=== PATIENT | male | born 1945 | race Two or more races ===

== ENCOUNTER 2019-06-03 10:13 | Emergency (ER) | payer MEDICARE, OTHER ==
[~2019-06-03] VITALS: Ht 165.1 cm; Wt 75.7 kg
--- NOTE | 2019-06-03 10:25 | NUR ---
PT CAME INTO THE ED C/O OF LEFT KNEE PAIN SINCE 06/02/19. PT AAOX4, VSS, BREATHING EVEN AND UNLABORED W/ NO ACUTE DISTRESS NOTED. PT CONNECTED TO THE MONITOR AND POX
[2019-06-03] MEDS ORDERED: IBUPROFEN 600 MG TABLET PO ONE ×2 (10:37→11:00)
--- NOTE | 2019-06-03 10:55 | NUR ---
XRAY AT BEDSIDE
[2019-06-03] MEDS ORDERED: HYDROCODONE/APAP 5/325MG 1 EACH TABLET ONE (11:18)
[2019-06-03] MEDS ORDERED: HYDROCODONE/APAP 5/325MG 1 EACH TABLET PO ONE (11:30)
[2019-06-03 11:36] VITALS: BP 138/92
== END 2019-06-03 11:36 | disposition home or self-care (01) ==
LOC: ER 10:13
DX: M25.562 Pain in left knee (principal); I10 Essential (primary) hypertension
CPT/HCPCS: 73564-TC

== ENCOUNTER 2019-07-12 11:05 | Emergency (ER) | payer MEDICARE, OTHER ==
[~2019-07-12] VITALS: Ht 165.1 cm; Wt 75.7 kg
[2019-07-12 11:46] LABS: BASOPHILS % (AUTO) 0.5 % (0.0-2.0); EOSINOPHILS % (AUTO) 0.7 % (0.0-6.0); HEMATOCRIT 44 % (39-51); HEMOGLOBIN 14.5 g/dL (13.5-17.5); LYMPHOCYTES % (AUTO) 23.3 % (20.0-44.0); MEAN CORPUSCULAR HGB CONC 33 g/dl (31.0-36.0); MEAN CORPUSCULAR VOLUME 93 fL (80-96); MONOCYTES # (AUTO) 0.5 /CMM (0.1-1.30); NEUTROPHILS # (AUTO) 2.8 /CMM (1.8-8.9); NEUTROPHILS % (AUTO) 63.5 % (43.0-81.0); PLATELET COUNT (AUTO) 199 /CMM (150-450); RED BLOOD CELL COUNT(AUTO) 4.75 MIL/uL (4.5-6.0); WHITE BLOOD COUNT (AUTO) 4.4 K/uL (4.3-11.0)
[2019-07-12 11:54] LABS: CALCIUM, SERUM 9.5 mg/dL (8.5-10.1); CREATININE 0.9 mg/dL (0.6-1.3); POTASSIUM 4.3 mmol/L (3.5-5.1)
[2019-07-12 12:00] LABS: ALBUMIN 3.8 g/dL (3.4-5.0); BILIRUBIN,DIRECT 0.1 mg/dL (0.0-0.2); BILIRUBIN,TOTAL 0.5 mg/dL (0.2-1.0); TOTAL PROTEIN, SERUM 7.1 g/dL (6.4-8.2)
--- NOTE | 2019-07-12 13:16 | NUR ---
Dr. Harper @ bedside
[2019-07-12 13:51] VITALS: BP 137/67
--- NOTE | 2019-07-12 13:57 | NUR ---
Patient discharged to home in stable condition. Written and verbal after care instructions given. Patient verbalizes understanding of instruction.
== END 2019-07-12 13:58 | disposition home or self-care (01) ==
LOC: ER 11:05
DX: J44.9 Chronic obstructive pulmonary disease, unspecified (principal); I10 Essential (primary) hypertension
CPT/HCPCS: 36415; 71046; 80048-TC; 80076-TC; 83690-TC; 85025-TC

== ENCOUNTER 2019-11-05 00:46 | Emergency (ER) | payer MEDICARE, OTHER ==
[~2019-11-05] VITALS: Ht 167.6 cm; Wt 77.1 kg
--- NOTE | 2019-11-05 00:50 | NUR ---
Pt bibself c/o bilateral eye swelling and r eye pain following eyelid surgery yesterday. Pt axo4. respirations even and unlabored. pt put on the uncrater and pulse ox. pt stable. pt ambulatory with steady gait. NAD noted. Erythema and periorbital edema noted.
--- NOTE | 2019-11-05 01:20 | NUR ---
18g lac iv started, labs drawn and sent to lab.
[2019-11-05 01:32] LABS: BASOPHILS # (AUTO) 0.1 /CMM (0.0-0.2); BASOPHILS % (AUTO) 1.1 % (0.0-2.0); HEMATOCRIT 45 % (39-51); HEMOGLOBIN 14.7 g/dL (13.5-17.5); LYMPHOCYTES # (AUTO) 1.5 /CMM (0.8-4.8); LYMPHOCYTES % (AUTO) 28.7 % (20.0-44.0); MEAN CORPUSCULAR HGB CONC 33 g/dl (31.0-36.0); MEAN CORPUSCULAR VOLUME 93 fL (80-96); MONOCYTES # (AUTO) 0.7 /CMM (0.1-1.30); MONOCYTES % (AUTO) 14.3 % (2.0-12.0); NEUTROPHILS # (AUTO) 2.7 /CMM (1.8-8.9); NEUTROPHILS % (AUTO) 52.9 % (43.0-81.0); PLATELET COUNT (AUTO) 179 /CMM (150-450); RED BLOOD CELL COUNT(AUTO) 4.85 MIL/uL (4.5-6.0); WHITE BLOOD COUNT (AUTO) 5.1 K/uL (4.3-11.0)
[2019-11-05 01:47] LABS: CALCIUM, SERUM 8.8 mg/dL (8.5-10.1); POTASSIUM 4.4 mmol/L (3.5-5.1)
[2019-11-05] MEDS ORDERED: MORPHINE SULFATE INJ 4 MG/ML DISP.SYRIN ONE (01:55)
[2019-11-05] MEDS ORDERED: MORPHINE SULFATE INJ 2 MG/ML DISP.SYRIN IV ONE (02:00)
[2019-11-05] MEDS ORDERED: IOHEXOL-350 100 ML VIAL IV ONE ×2 (02:10→02:11)
[2019-11-05] MEDS ORDERED: IV NS 0.9% 250 ML IV ONE (02:10)
[2019-11-05] MEDS ORDERED: CT SWABBABLE VALVE TRANS SET 1 EA INFUS.SET MC ONE (02:10)
--- NOTE | 2019-11-05 02:13 | NUR ---
pt taken to ct via [facility].
--- NOTE | 2019-11-05 02:35 | NUR ---
Pt returned from CT.
--- NOTE | 2019-11-05 04:17 | NUR ---
CALLED [facility] FOR REPORT
[2019-11-05] MEDS ORDERED: IBUPROFEN 600 MG TABLET PO ONE ×2 (04:50→05:00)
[2019-11-05] MEDS ORDERED: CLINDAMYCIN HCL 150 MG CAPSULE PO ONE ×2 (04:50→05:00)
--- NOTE | 2019-11-05 04:56 | NUR ---
Patient discharged to home in stable condition. Written and verbal after care instructions given. Patient verbalizes understanding of instruction. IV removed. Catheter intact and site benign. Pressure and 4x4 applied to site. No bleeding noted.
[2019-11-05 04:57] VITALS: BP 129/71
== END 2019-11-05 04:57 | disposition home or self-care (01) ==
LOC: ER 00:48
DX: S05.12XA Contusion of eyeball and orbital tissues, left eye, initial encounter (principal); S05.11XA Contusion of eyeball and orbital tissues, right eye, initial encounter; H05.012 Cellulitis of left orbit; I10 Essential (primary) hypertension; M54.9 Dorsalgia, unspecified; X58.XXXA Exposure to other specified factors, initial encounter; Y93.89 Activity, other specified; Y92.89 Other specified places as the place of occurrence of the external cause; Y99.8 Other external cause status
CPT/HCPCS: 36415; 70481; 80048; 85025; 96374; 99285; J2270; J7050; Q9967 ×2

== ENCOUNTER 2022-01-11 20:54 | Emergency (ER) | payer MEDICARE, OTHER ==
[~2022-01-11] VITALS: Ht 167.6 cm; Wt 77.1 kg
[2022-01-11 21:07] VITALS: BP 131/66
--- NOTE | 2022-01-11 21:30 | NUR ---
Patient discharged to home in stable condition. Written and verbal after care instructions given. Patient verbalizes understanding of instruction. Pt ambulatory with a steady gait
== END 2022-01-11 22:31 | disposition home or self-care (01) ==
LOC: ER 20:59
DX: H11.32 Conjunctival hemorrhage, left eye (principal); I10 Essential (primary) hypertension

== ENCOUNTER 2023-04-09 16:34 | Emergency (ER) | payer MEDICARE, OTHER ==
[~2023-04-09] VITALS: Ht 170.2 cm; Wt 67.1 kg
[2023-04-09] MEDS ORDERED: LIDOCAINE HCL/PF 1% 30 ML SDV ONE (17:54)
[2023-04-09] MEDS ORDERED: SULFAMETH/TRIMETH 800/160 MG 1 UDTAB TABLET PO ONE (18:00)
[2023-04-09] MEDS ORDERED: SULFAMETH/TRIMETH 800/160 MG 1 UDTAB TABLET ONE (18:08)
[2023-04-09] MEDS ORDERED: SULF1TAB48 PO (18:39)
[2023-04-09 18:56] VITALS: BP 147/86; TEMP 98.4; O2SAT 100
== END 2023-04-09 18:56 | disposition home or self-care (01) ==
LOC: ER 16:40
DX: H60.01 Abscess of right external ear (principal); I10 Essential (primary) hypertension; Z60.2 Problems related to living alone
CPT/HCPCS: 99283; 10060; J3490

== ENCOUNTER 2023-04-12 16:39 | Emergency (ER) | payer MEDICARE, OTHER ==
[~2023-04-12] VITALS: Ht 170.2 cm; Wt 64.4 kg
[~2023-04-12 16:39] MED LIST: SULF1TAB48 PO
[2023-04-12 17:09] VITALS: BP 142/67; TEMP 98.6
[2023-04-12] MEDS ORDERED: LIDOCAINE HCL/PF 1% 30 ML VIAL TP ONE (17:30)
[2023-04-12] MEDS ORDERED: LIDOCAINE MPF 1%-EPI 1:200,000 30 ML VIAL IJ ONE (17:39)
[2023-04-12 18:30] VITALS: O2SAT 98
== END 2023-04-12 18:31 | disposition home or self-care (01) ==
LOC: ER 16:57
DX: L98.9 Disorder of the skin and subcutaneous tissue, unspecified (principal); I10 Essential (primary) hypertension; Z60.2 Problems related to living alone
CPT/HCPCS: 10060; 99282; J3490 ×2

== ENCOUNTER 2023-08-19 15:24 | Emergency (ER) | payer MEDICARE, OTHER ==
[~2023-08-19] VITALS: Ht 170.2 cm; Wt 69.4 kg
[2023-08-19] MEDS ORDERED: SUMATRIPTAN SUCCINATE 6 MG/0.5 ML VIAL SQ ONE (15:58)
[2023-08-19] MEDS ORDERED: diphenhydrAMINE HCL 50 MG/ML VIAL ONE (15:58)
[2023-08-19] MEDS: diphenhydrAMINE HCL 50 MG/ML VIAL IV ONE (16:04)
[2023-08-19] MEDS: SUMATRIPTAN SUCCINATE 6 MG/0.5 ML VIAL SQ ONE (16:05)
[2023-08-19 16:10] LABS: BASOPHILS % (AUTO) 0.7 % (0.0-2.0); EOSINOPHILS % (AUTO) 1.2 % (0.0-6.0); HEMATOCRIT 41 % (39-51); HEMOGLOBIN 13.3 g/dL (13.5-17.5); LYMPHOCYTES % (AUTO) 24.9 % (20.0-44.0); MEAN CORPUSCULAR HEMOGLOBIN 31 PG (26.0-33.0); MEAN CORPUSCULAR HGB CONC 33 g/dl (31.0-36.0); MEAN CORPUSCULAR VOLUME 93 fL (80-96); MONOCYTES # (AUTO) 0.4 K/uL (0.1-1.30); MONOCYTES % (AUTO) 9.7 % (2.0-12.0); NEUTROPHILS # (AUTO) 2.6 K/uL (1.8-8.9); NEUTROPHILS % (AUTO) 63.5 % (43.0-81.0); PLATELET COUNT (AUTO) 164 K/uL (150-450); RED BLOOD CELL COUNT(AUTO) 4.37 MIL/uL (4.5-6.0); RED CELL DISTRIBUTION WIDTH 14.5 % (11.5-15.0); WHITE BLOOD COUNT (AUTO) 4.1 K/uL (4.3-11.0)
[2023-08-19 16:28] LABS: CALCIUM, SERUM 9.1 mg/dL (8.5-10.1); CARBON DIOXIDE 28 mmol/L (21-32); CHLORIDE 103 mmol/L (98-107); CREATININE 0.8 mg/dL (0.6-1.3); GLUCOSE 99 mg/dL (74-106); SODIUM SERUM 136 mmol/L (136-145); UREA NITROGEN, BLOOD 18 mg/dL (7-18)
[2023-08-19 16:40] LABS: NT-PRO BNP 34 pg/mL (0-125)
[2023-08-19] MEDS ORDERED: IBUP-1953 PO (18:47)
[2023-08-19] MEDS ORDERED: SUMA50TA PO (18:47)
[2023-08-19 19:05] VITALS: BP 128/78; TEMP 98.1; O2SAT 97
== END 2023-08-19 19:06 | disposition home or self-care (01) ==
LOC: ER 15:24
DX: B34.9 Viral infection, unspecified (principal); R51.9 Headache, unspecified; I10 Essential (primary) hypertension; Z20.822 Contact with and (suspected) exposure to COVID-19
CPT/HCPCS: 99285; 96374; 70450; 71045; 87426; 93005 ×3; 87804 ×2; 85025; 80048; 36415; 84484; 83880; 82962; 96372; J1200; J3030; C9803

== ENCOUNTER 2023-09-01 00:50 | Emergency (ER) | payer MEDICARE, OTHER ==
[~2023-09-01] VITALS: Ht 170.2 cm; Wt 69.4 kg
[~2023-09-01 00:50] MED LIST changes: +IBUP-1953 PO; +SUMA50TA PO
[2023-09-01] MEDS ORDERED: HYDROCODONE/APAP 5/325MG TABLET PO ONE (01:30)
[2023-09-01 01:32] VITALS: TEMP 98.4
[2023-09-01] MEDS ORDERED: MORP15TA PO (01:35)
[2023-09-01] MEDS ORDERED: HYDROCODONE/APAP 5/325MG TABLET ONE (01:36)
[2023-09-01] MEDS ORDERED: KETOROLAC TROMETHAMINE INJ 60 MG/2 ML VIAL IM ONE ×2 (03:30)
[2023-09-01 04:43] VITALS: BP 135/81; O2SAT 98
== END 2023-09-01 04:44 | disposition home or self-care (01) ==
LOC: ER 00:52
DX: M75.31 Calcific tendinitis of right shoulder (principal); M25.511 Pain in right shoulder; I10 Essential (primary) hypertension
CPT/HCPCS: 99283; 96372; 73030; J1885

== ENCOUNTER → 2023-10-02 | Emergency (ER) | payer MEDICARE, OTHER ==
[~2023-10-02] VITALS: Ht 170.2 cm; Wt 73.9 kg
[~2023-10-02] MED LIST changes: +CYCL10TA9 PO; +IBUP-1955 PO; +IBUPROFEN 600 MG TABLET ONE; +MORP15TA PO
[2023-10-02] MEDS: IBUPROFEN 600 MG TABLET PO ONE (12:13)
[2023-10-02 12:25] VITALS: BP 146/95; TEMP 98.5; O2SAT 96
== END | disposition home or self-care (01) ==
LOC: ER 09:06
DX: S33.5XXA Sprain of ligaments of lumbar spine, initial encounter (principal); J90 Pleural effusion, not elsewhere classified; I10 Essential (primary) hypertension; X58.XXXA Exposure to other specified factors, initial encounter; Y93.89 Activity, other specified; Y92.89 Other specified places as the place of occurrence of the external cause; Y99.8 Other external cause status
CPT/HCPCS: 71045-TC; 72100-TC

== ENCOUNTER 2024-01-30 04:20 | Emergency (ER) | payer MEDICARE, OTHER ==
[~2024-01-30] VITALS: Ht 170.2 cm; Wt 62.6 kg
[~2024-01-30 04:20] MED LIST changes: +CIPR500T5 PO; -IBUPROFEN 600 MG TABLET ONE; +TAMS-12 PO
[2024-01-30] MEDS ORDERED: FAMOTIDINE/PF INJ 20 MG/2 ML VIAL IV ONE (05:08)
[2024-01-30] MEDS: FAMOTIDINE/PF INJ 20 MG/2 ML VIAL IV ONE (05:25)
[2024-01-30 06:46] LABS: BASOPHILS % (AUTO) 0.5 % (0.0-2.0); EOSINOPHILS # (AUTO) 0.1 K/uL (0.0-0.7); EOSINOPHILS % (AUTO) 2.4 % (0.0-6.0); HEMATOCRIT 39 % (39-51); LYMPHOCYTES # (AUTO) 1.2 K/uL (0.8-4.8); LYMPHOCYTES % (AUTO) 28.8 % (20.0-44.0); MEAN CORPUSCULAR HEMOGLOBIN 31 PG (26.0-33.0); MEAN CORPUSCULAR HGB CONC 33 g/dl (31.0-36.0); MEAN CORPUSCULAR VOLUME 93 fL (80-96); MONOCYTES # (AUTO) 0.6 K/uL (0.1-1.30); MONOCYTES % (AUTO) 13.7 % (2.0-12.0); NEUTROPHILS # (AUTO) 2.3 K/uL (1.8-8.9); NEUTROPHILS % (AUTO) 54.6 % (43.0-81.0); PLATELET COUNT (AUTO) 166 K/uL (150-450); RED CELL DISTRIBUTION WIDTH 15.5 % (11.5-15.0); WHITE BLOOD COUNT (AUTO) 4.2 K/uL (4.3-11.0)
[2024-01-30 06:51] LABS: ADD URINE CULTURE NO; APPEARANCE,URINE CLEAR (CLEAR); BACTERIA,URINE Rare /HPF (None Seen); BILIRUBIN,URINE NEGATIVE (NEGATIVE); BLOOD, URINE TRACE-INTA Ery/uL (NEGATIVE); COLOR,URINE YELLOW (YELLOW); KETONES,URINE TRACE mg/dL (NEGATIVE); LEUKOCYTE ESTERASE ,URINE NEGATIVE (NEGATIVE); NITRITE, URINE NEGATIVE (NEGATIVE); PH,URINE 5.5 (5.0-8.0); PROTEIN,URINE NEGATIVE (NEGATIVE); SQUAMOUS EPITHELIAL CELL,UR Rare /HPF (None Seen); UGLUCOSE NEGATIVE (NEGATIVE); UROBILINOGEN,URINE 0.2 EU/dL (0.2); WBC,URINE 0-2 /HPF (0-3)
[2024-01-30 07:06] LABS: CALCIUM, SERUM 9.4 mg/dL (8.5-10.1); CARBON DIOXIDE 28 mmol/L (21-32); CHLORIDE 106 mmol/L (98-107); CREATININE 0.8 mg/dL (0.6-1.3); GLUCOSE 106 mg/dL (74-106); SODIUM SERUM 142 mmol/L (136-145); UREA NITROGEN, BLOOD 16 mg/dL (7-18)
[2024-01-30 07:12] LABS: ALANINE AMINOTRANSFERASE 16 U/L (12-78); ALBUMIN 3.3 g/dL (3.4-5.0); ALKALINE PHOSPHATASE 40 U/L (46-116); ASPARTATE AMINOTRANSFERASE < 5 U/L (15-37); BILIRUBIN,DIRECT 0.1 mg/dL (0.0-0.2); BILIRUBIN,TOTAL 0.3 mg/dL (0.2-1.0); LIPASE 39 U/L (16-77); TOTAL PROTEIN, SERUM 6.6 g/dL (6.4-8.2)
[2024-01-30] MEDS ORDERED: PANT40TA2 PO (07:35)
[2024-01-30 07:47] VITALS: BP 124/71; TEMP 98; O2SAT 98
== END 2024-01-30 07:47 | disposition home or self-care (01) ==
LOC: ER 04:29
DX: R10.13 Epigastric pain (principal); I10 Essential (primary) hypertension; Z87.438 Personal history of other diseases of male genital organs
CPT/HCPCS: 36415; 80048-TC; 80076-TC; 81001; 83690-TC; 84484-TC; 85025-TC; 87086-TC; J3490

== ENCOUNTER 2024-02-15 08:35 | Emergency (ER) | payer MEDICARE, OTHER ==
[~2024-02-15] VITALS: Ht 170.2 cm; Wt 73.9 kg
[~2024-02-15 08:35] MED LIST changes: +PANT40TA2 PO
[2024-02-15] MEDS ORDERED: TAMS-12 PO (09:03)
[2024-02-15 09:32] LABS: APPEARANCE,URINE CLEAR (CLEAR); BILIRUBIN,URINE NEGATIVE (NEGATIVE); BLOOD, URINE TRACE-INTA Ery/uL (NEGATIVE); COLOR,URINE YELLOW (YELLOW); KETONES,URINE NEGATIVE (NEGATIVE); LEUKOCYTE ESTERASE ,URINE NEGATIVE (NEGATIVE); NITRITE, URINE POSITIVE (NEGATIVE); PROTEIN,URINE NEGATIVE (NEGATIVE); UGLUCOSE NEGATIVE (NEGATIVE)
[2024-02-15 09:34] LABS: ADD URINE CULTURE YES; BACTERIA,URINE Few /HPF (None Seen); RBC,URINE 0-2 /HPF (0-2); SQUAMOUS EPITHELIAL CELL,UR Rare /HPF (None Seen)
[2024-02-15 09:42] VITALS: BP 148/77; TEMP 98.3; O2SAT 99
== END 2024-02-15 09:43 | disposition home or self-care (01) ==
LOC: ER 09:31
DX: N40.0 Benign prostatic hyperplasia without lower urinary tract symptoms (principal); I10 Essential (primary) hypertension; Z79.899 Other long term (current) drug therapy
CPT/HCPCS: 81001; 87086-TC

== ENCOUNTER 2024-06-18 09:45 | Emergency (ER) | payer MEDICARE, OTHER ==
[~2024-06-18] VITALS: Ht 167.6 cm; Wt 127.0 kg
[2024-06-18] MEDS ORDERED: MINERAL OIL 133 ML (PYXIS) 1 EA ENEMA RC ONE (10:15)
[2024-06-18] MEDS: MINERAL OIL 133 ML (PYXIS) 1 EA ENEMA RC ONE (10:57)
[2024-06-18] MEDS ORDERED: NA P133E8 RC (12:20)
[2024-06-18] MEDS ORDERED: SENN1TAB33 PO (12:20)
[2024-06-18 12:33] VITALS: BP 128/70; TEMP 97.5; O2SAT 98
== END 2024-06-18 12:34 | disposition home or self-care (01) ==
LOC: ER 09:49
DX: K56.41 Fecal impaction (principal); N40.0 Benign prostatic hyperplasia without lower urinary tract symptoms; I10 Essential (primary) hypertension

== ENCOUNTER 2024-07-08 02:27 | Emergency (ER) | payer MEDICARE, OTHER ==
[~2024-07-08 02:27] MED LIST changes: +NA P133E8 RC; +SENN1TAB33 PO
== END 2024-07-08 04:11 | disposition left against medical advice (07) ==
LOC: ER 03:11
DX: R03.0 Elevated blood-pressure reading, without diagnosis of hypertension (principal); Z53.21 Procedure and treatment not carried out due to patient leaving prior to being seen by health care provider

== ENCOUNTER 2024-09-12 21:47 | Emergency (ER) | payer MEDICARE, OTHER ==
[~2024-09-12] VITALS: Ht 170.2 cm; Wt 63.5 kg
[2024-09-12] MEDS ORDERED: FAMOTIDINE/PF INJ 20 MG/2 ML VIAL IV ONE (22:34)
[2024-09-12] MEDS: FAMOTIDINE/PF INJ 20 MG/2 ML VIAL IV ONE (22:36)
[2024-09-12 22:52] LABS: BASOPHILS % (AUTO) 0.3 % (0.0-2.0); EOSINOPHILS % (AUTO) 0.8 % (0.0-6.0); HEMATOCRIT 42 % (39-51); HEMOGLOBIN 13.8 g/dL (13.5-17.5); LYMPHOCYTES # (AUTO) 1.3 K/uL (0.8-4.8); LYMPHOCYTES % (AUTO) 28.3 % (20.0-44.0); MEAN CORPUSCULAR HEMOGLOBIN 31 PG (26.0-33.0); MEAN CORPUSCULAR HGB CONC 33 g/dl (31.0-36.0); MEAN CORPUSCULAR VOLUME 94 fL (80-96); MONOCYTES # (AUTO) 0.6 K/uL (0.1-1.30); MONOCYTES % (AUTO) 12.9 % (2.0-12.0); NEUTROPHILS # (AUTO) 2.6 K/uL (1.8-8.9); NEUTROPHILS % (AUTO) 57.7 % (43.0-81.0); PLATELET COUNT (AUTO) 155 K/uL (150-450); RED BLOOD CELL COUNT(AUTO) 4.42 MIL/uL (4.5-6.0); RED CELL DISTRIBUTION WIDTH 14.9 % (11.5-15.0); WHITE BLOOD COUNT (AUTO) 4.4 K/uL (4.3-11.0)
[2024-09-12 23:07] LABS: ALANINE AMINOTRANSFERASE 20 U/L (12-78); ALBUMIN 3.6 g/dL (3.4-5.0); ALKALINE PHOSPHATASE 37 U/L (46-116); ASPARTATE AMINOTRANSFERASE 12 U/L (15-37); BILIRUBIN,DIRECT 0.1 mg/dL (0.0-0.2); BILIRUBIN,TOTAL 0.3 mg/dL (0.2-1.0); CALCIUM, SERUM 8.9 mg/dL (8.5-10.1); CARBON DIOXIDE 31 mmol/L (21-32); CHLORIDE 109 mmol/L (98-107); CREATININE 0.8 mg/dL (0.6-1.3); GLUCOSE 104 mg/dL (74-106); LIPASE 40 U/L (16-77); POTASSIUM 4.3 mmol/L (3.5-5.1); SODIUM SERUM 145 mmol/L (136-145); TOTAL PROTEIN, SERUM 6.5 g/dL (6.4-8.2); UREA NITROGEN, BLOOD 22 mg/dL (7-18)
[2024-09-12 23:14] LABS: APPEARANCE,URINE CLEAR (CLEAR); BILIRUBIN,URINE NEGATIVE (NEGATIVE); BLOOD, URINE NEGATIVE Ery/uL (NEGATIVE); COLOR,URINE YELLOW (YELLOW); KETONES,URINE NEGATIVE (NEGATIVE); LEUKOCYTE ESTERASE ,URINE NEGATIVE (NEGATIVE); NITRITE, URINE NEGATIVE (NEGATIVE); PH,URINE 7.5 (5.0-8.0); PROTEIN,URINE NEGATIVE (NEGATIVE); UGLUCOSE NEGATIVE (NEGATIVE); UROBILINOGEN,URINE 0.2 EU/dL (0.2)
[2024-09-12] MEDS ORDERED: FAMO20TA8 PO (23:25)
[2024-09-12 23:47] VITALS: BP 125/75; TEMP 98; O2SAT 98
== END 2024-09-12 23:48 | disposition home or self-care (01) ==
LOC: ER 21:53
DX: R10.84 Generalized abdominal pain (principal); I10 Essential (primary) hypertension; N40.0 Benign prostatic hyperplasia without lower urinary tract symptoms; Z79.1 Long term (current) use of non-steroidal anti-inflammatories (NSAID); Z79.899 Other long term (current) drug therapy
CPT/HCPCS: 99285; 74176; 96374; 93005; 85025; 80048; 87086; 83690; 80076; 81003; 36415; 84484; J3490

== ENCOUNTER 2025-08-17 20:47 | Emergency (ER) | payer MEDICARE, OTHER ==
[~2025-08-17] VITALS: Ht 172.7 cm; Wt 68.0 kg
[~2025-08-17 20:47] MED LIST changes: +ACET-73 PO; +FAMO20TA8 PO; +GUAI120013 PO; +IBUP-1490 PO
[2025-08-17 21:12] VITALS: BP 143/87; TEMP 98.4; O2SAT 96
== END 2025-08-17 21:44 | disposition left against medical advice (07) ==
LOC: ER 20:51
DX: I10 Essential (primary) hypertension (principal)